=== PATIENT | female | born 2000 | race Hispanic/Latino ===

== ENCOUNTER 2021-08-20 07:04 | Day surgery (SDC) | payer BC ==
[2021-08-20] MEDS ORDERED: propofoL 200 MG/20 ML VIAL IV ONE (07:18)
[2021-08-20] MEDS ORDERED: LIDOCAINE 2% MPF 5 ML VIAL ONE (07:18)
[2021-08-20] MEDS ORDERED: FENTANYL CITR 100 MCG/2 ML ONE (07:18)
[2021-08-20] MEDS ORDERED: MIDAZOLAM HCL 2 MG/2 ML INJ ONE (07:19)
[2021-08-20] MEDS ORDERED: ONDANSETRON 4 MG/2 ML VIAL ONE ×2 (07:19→08:34)
[2021-08-20] MEDS ORDERED: NA CHLORIDE 0.9% 50 ML ONE (07:35)
[2021-08-20] MEDS ORDERED: Ringers Lactate 1,000 ML IV ONE (07:35)
[2021-08-20] MEDS ORDERED: CEFAZOLIN SODIUM 1 GM/VIAL ONE (07:35)
[2021-08-20] MEDS ORDERED: LIDOCAINE 1% W/EPI 1:100,000 MDV 20 ML VIAL ONE (07:42)
[2021-08-20] MEDS ORDERED: CELECOXIB 100 MG CAPSULE ONE (07:57)
[2021-08-20] MEDS ORDERED: ACETAMINOPHEN 500 MG TAB ONE (07:57)
[2021-08-20] MEDS ORDERED: dexAMETHasone 4 MG/ML VIAL ONE (08:34)
[2021-08-20] MEDS ORDERED: EPHEDRINE SULF 50 MG/ML VIAL ONE (08:40)
[2021-08-20 08:57] VITALS: O2SAT 100
--- NOTE | 2021-08-20 08:57 | P.OP ---
Sampler Pickup: NONE,NONE Preoperative diagnosis: neoplasm uncertain behavior, right ear Postoperative diagnosis: same Primary procedure: excision lesion, right ear Anesthesia: general via LMA Estimated blood loss: <5ml Specimen: right ear lesion Findings: 2 cm firm, cartilageous appearing mass Operative Technique: After adequate plane of anesthesia, the patient's head was turned towards the left for exposure of the right ear. Wide silk tape was used to secure the surrounding hair and all exposed hair was coated generously with water-based lubricant. The right ear was examined and was noted to have a firm 1.5 x 2 cm nodule without obvious attachment to the overlying skin located at the superior aspect of the helix. The surrounding skin was injected with 1% lidocaine with epinephrine. A total of 3 mL was used. The ear and surrounding scalp was prepped with Betadine and and draped in a sterile fashion. The Bovie electrocautery was used to make a 2 cm incision on the posterior aspect of the pinna near the base of the lesion. Iris scissors were used to dissect along the surface elevating the skin anteriorly. The skin flap was retracted with a Sen rake and the anterior aspect of the lesion was identified. There seemed to be a plane between the lesion and the underlying helix of cartilage. Once this plane was identified the lesion elevated smoothly from the underlying cartilage. The lesion was completely removed. A small amount of bleeding from the skin flap was controlled with judicious needlepoint Bovie electrocautery. The skin flap was laid over the resulting defect and due to the slow stretching, an excess amount of skin was noted. Tenotomy scissors were used to carefully trimmed the skin flap of several millimeters of excess skin allowing smoother closure with less soft tissue redundancy. The incision was closed in a running fashion using fast absorbing gut suture. Direct pressure was applied and the area was felt to be hemostatic. The incision was treated with antibiotic ointment and a bandage. The patient was returned to care of anesthesia for awakening and extubation in the operating room which proceeded without difficulty and the patient was transported to the recovery room in stable condition. Complications: None Implants: none Fluids & blood products: crystalloid 400 mL Transferred to: Recovery Room Condition: Good
[2021-08-20 09:32] LABS: Urine Specific Gravity/Preg >1.030 (1.005-1.030)
[2021-08-20 10:44] VITALS: BP 109/49; TEMP 97.1
== END 2021-08-20 10:14 | disposition home or self-care (01) ==
LOC: OR 07:04
PROVIDERS: ATTEND Otolaryngology
PROC: 0HB2XZZ Excision of Right Ear Skin, External Approach (ICD-10-PCS; principal; 2021-08-20 08:15)
DX: D23.21 Other benign neoplasm of skin of right ear and external auricular canal (principal); Z20.822 Contact with and (suspected) exposure to COVID-19
CPT/HCPCS: 11442; 81025; 88305; U0002; J2704; J1100; J2250; J3010; J7120; J2405 ×2; J0690